=== PATIENT | male | born 1950 | race Caucasian/White ===

== ENCOUNTER 2018-04-08 05:23 | Day surgery (SDC) | payer OTHER ==
[~2018-04-08] VITALS: Ht 167.6 cm; Wt 92.7 kg
[~2018-04-08 05:23] MED LIST: ACET-66 PO; ASPI81 PO; ATOR20TA86 PO; CLON.5 PO; GABA-529 PO; HYDR25TA PO; IPRA4AER IH; LISI-662 PO; OMEG-135 PO; OMEP20 PO; SILD25 PO; VITAD1000 PO
[2018-04-08] MEDS ORDERED: SODIUM CHLORIDE 0.9% 1,000 ML IV ONE ×2 (05:44→06:00)
[2018-04-08 07:11] LABS: PROTHROMBIN TIME 10.7 SEC (9.4-11.6)
[2018-04-08] MEDS ORDERED: SODIUM BICARBONATE 50 MEQ/50 ML VIAL ONE (07:15)
[2018-04-08] MEDS ORDERED: LIDOCAINE/PF 1% 30 ML VIAL ONE (07:15)
[2018-04-08 07:22] LABS: CALCIUM, TOTAL 8.8 mg/dL (8.8-10.5); CREATININE 1.26 mg/dL (0.60-1.30); POTASSIUM 4.1 mmol/L (3.5-5.1)
[2018-04-08 07:25] LABS: ALBUMIN 3.3 g/dL (3.4-5.0); BILIRUBIN,TOTAL 0.9 mg/dL (0.1-1.0); TOTAL PROTEIN, SERUM 6.7 g/dL (6.4-8.2)
[2018-04-08 07:33] VITALS: BP 116/71
[2018-04-08] MEDS ORDERED: MIDAZOLAM HCL 2 MG/2 ML VIAL ONE ×2 (07:40→08:12)
[2018-04-08] MEDS ORDERED: FentaNYL CITRATE-PF 100 MCG/2 ML VIAL ONE ×2 (07:40→08:12)
[2018-04-08 07:43] LABS: BASOPHILS % (AUTO) 1.1 % (0.0-2.0); EOSINOPHILS % (AUTO) 4.5 % (1.0-6.0); HEMATOCRIT 39.4 % (41-53); HEMOGLOBIN 13.6 g/dL (13.5-17.5); MEAN CORPUSCULAR HEMOGLOBIN 31.2 pg (26.0-34.0); MEAN CORPUSCULAR HGB CONC 34.7 G/dL (31.0-37.0); MEAN CORPUSCULAR VOLUME 90 fL (80-100); MONOCYTES # (AUTO) 0.6 K/uL (0.1-1.0); MONOCYTES % (AUTO) 10.2 % (2.0-9.0); NEUTROPHILS # (AUTO) 4.3 K/uL (1.8-7.7); NEUTROPHILS % (AUTO) 68.2 % (40.0-70.0); PLATELET COUNT (AUTO) 161 K/uL (150-450); RED BLOOD CELL COUNT(AUTO) 4.38 MIL/uL (4.50-5.90); RED CELL DISTRIBUTION WIDTH 13.6 % (11.5-14.5)
[2018-04-08] MEDS ORDERED: FentaNYL CITRATE-PF 100 MCG/2 ML VIAL IVP ONE ×3 (08:15)
[2018-04-08] MEDS ORDERED: LIDOCAINE 1% 30 ML/SOD BICARB 8.4% 4 ML SQ ONE (08:15)
[2018-04-08] MEDS ORDERED: MIDAZOLAM HCL 2 MG/2 ML VIAL IVP ONE ×3 (08:15)
[2018-04-08 08:25] VITALS: BP 107/60
[2018-04-08] MEDS ORDERED: CeFAZolin 1 GM/DEXTROSE 50 ML IV ONE ×2 (11:47→12:00)
== END 2018-04-08 13:25 | disposition home or self-care (01) ==
LOC: SDS 05:23
PROVIDERS: ATTEND Internal Medicine Cardiovascular Disease
DX: I49.5 Sick sinus syndrome (principal); J43.9 Emphysema, unspecified; I11.9 Hypertensive heart disease without heart failure; F41.8 Other specified anxiety disorders; E78.00 Pure hypercholesterolemia, unspecified; Z79.891 Long term (current) use of opiate analgesic; Z79.82 Long term (current) use of aspirin; Z88.8 Allergy status to other drugs, medicaments and biological substances; Z79.899 Other long term (current) drug therapy; Z98.890 Other specified postprocedural states
CPT/HCPCS: 33282; 36415; 80053; 85025; 85610; 85730; 93005; 99152; 99153; C1764; J0690; J2250; J3010; J3490 ×2; J7030